=== PATIENT | male | born 1935 | race Caucasian/White ===

== ENCOUNTER 2017-07-14 05:57 | Day surgery (SDC) | payer OTHER ==
[~2017-07-14] VITALS: Ht 175.3 cm; Wt 78.0 kg
[~2017-07-14 05:57] MED LIST: 1-ME1LIQ PO; ENAL10TA7 PO; FEXO180 PO; LORTA5 PO
[2017-07-14 06:48] VITALS: BP 128/72; PULSE 78; RESP 18; TEMP 97.5; O2SAT 98
[2017-07-14] MEDS ORDERED: APIX5TAB PO (06:52)
[2017-07-14] MEDS ORDERED: ENAL20TA PO (06:52)
[2017-07-14] MEDS ORDERED: MULT1TAB46 PO (06:52)
[2017-07-14] MEDS ORDERED: VITA100036 PO (06:52)
[2017-07-14] MEDS ORDERED: AMLO10TA2 PO (06:52)
[2017-07-14] MEDS ORDERED: CALC500T8 PO (06:52)
[2017-07-14 07:12] LABS: AUTOMATED NEUTROPHIL # 2.4 TH/MM3 (1.8-7.7); BASOPHIL % 0.5 % (0.0-2.0); EOSINOPHIL # 0.1 TH/MM3 (0-0.4); EOSINOPHIL % 2.8 % (0.0-4.0); HEMATOCRIT 32.6 % (39.0-51.0); HEMO FLAGS DIFF FINAL; LYMPH % 26.2 % (9.0-44.0); MEAN CELL VOLUME 111.2 FL (80.0-100.0); MEAN CORPUSCULAR HEMOGLOBIN 37.8 PG (27.0-34.0); NEUT % 62.5 % (16.0-70.0); PLATELET COUNT 187 TH/MM3 (150-450); RED BLOOD COUNT 2.93 MIL/MM3 (4.50-5.90); RED CELL DISTRIBUTION WIDTH 13.6 % (11.6-17.2); WHITE BLOOD COUNT 3.8 TH/MM3 (4.0-11.0)
[2017-07-14] MEDS ORDERED: ceFAZolin 2 GM PREMIX 50 ML - implanted port/tunneled catheter insertion IV SCH (07:30)
[2017-07-14] MEDS ORDERED: SODIUM CHLORIDE 0.9% 1000 ML IV SCH (07:30)
[2017-07-14] MEDS: VANCOMYCIN 1000 MG/NS 250 ML - implanted port/tunneled catheter IV SCH ×4 (07:35→08:46)
[2017-07-14] MEDS ORDERED: MIDAZOLAM HCL 2 MG/2 ML VIAL ONE (08:06)
[2017-07-14] MEDS ORDERED: SODIUM CHLORIDE 0.9% FLUSH 10 ML FLUSH IVF PRN (08:45)
--- NOTE | 2017-07-14 08:46 | PD.RAD ---
Post Procedure Progress Note Pre Procedure Diagnosis: (1) Lung mass (2) Renal cancer Post Procedure Diagnosis: (1) Renal cancer (2) Lung mass Procedure Date: Jul 14, 2017 Supervising Radiologist: Oscar Mckeon Estimated blood loss: 2CC Anesthesia: Local, Conscious Sedation Plan of Activity Patient to Unit: ROPU Patient Condition: Fair Additional Comments: Port placed via the right subclavian vein. Catheter in good position Ok for use. Full dictated report to follow See PACS Report for procedural detail/treatment Oscar Mckeon MD Jul 14, 2017 08:46
[2017-07-14 08:55] VITALS: BP 115/62; PULSE 75; RESP 18; TEMP 97.5; O2SAT 97
[2017-07-14 09:10] VITALS: BP 121/75; PULSE 74; RESP 18; O2SAT 97
[2017-07-14 09:40] VITALS: BP 120/68; PULSE 67; RESP 18; O2SAT 98
--- NOTE | 2017-07-14 09:49 | RADRPT ---
EXAM DATE/TIME: 07/14/2017 09:17 [facility] COMPARISON: No previous studies available for comparison. INDICATIONS : Post infusaport placement. MEDICAL HISTORY : Hypertension. Arthritis. Renal cancer. SURGICAL HISTORY : Nephrectomy, left. Right partial lobectomy ENCOUNTER: Initial ACUITY: 1 day PAIN SCORE: 0/10 LOCATION: Right chest FINDINGS: A single frontal expiratory view of the chest was performed. Right-sided Nmqclo-w-Xwcc placement with tip in the cavoatrial junction. Elevation right hemidiaphragm. Pleural-based density laterally on th e left likely rib lesion. Second rib lesion along the left second and third ribs overlying the scapul a. Expansile rib lesion on the right. Heart normal in size. The cardio-mediastinal contours and bronchopulmonary markings are unremarkable for an expiratory exam . Osseous structures are intact. CONCLUSION: 1. Right-sided Kyovyj-m-Ljiz catheter in good position. 2. Bilateral suspected rib lesions. Carlton Velez MD on July 14, 2017 at 9:46 Board Certified Radiologist. This report was verified electronically.
[2017-07-14 10:10] VITALS: BP 143/79; PULSE 81; RESP 18; O2SAT 97
--- NOTE | 2017-07-14 12:30 | RADRPT ---
EXAM DATE/TIME: 07/14/2017 08:04 [facility] COMPARISON: No previous studies available for comparison. INDICATIONS : Patient with a history of metastatic renal cell carcinoma. MEDICAL HISTORY : Renal cancer Lung mass HTN Heart disease SURGICAL HISTORY : Left nephrectomy Lobectomy ENCOUNTER: Initial ACUITY: >1 year PAIN SCORE: 0/10 FLUORO TIME: 0.7 minutes IMAGE SERIES: 2 SEDATION TIME: 20 minutes ACCESS: Right subclavian vein SEDATION: 1.) 2 mg midazolam (Versed) IV 2.) 100 mcg fentanyl (Sublimaze) IV Prophylactic antibiotics were administered with appropriate pre-procedure timing. Vancomycin within 2 hours of procedure, Ancef (or alternative) within 1 hour of procedure. DEVICE: 1. 8 [place] single lumen Bard Power Port PROCEDURE : 1. Continuous pulse oximetry and EKG monitoring. 2. Intravenous conscious sedation. 3. Ultrasound guidance for venous access. 4. Fluoroscopic guided implantable central venous port placement. The patient was placed supine. The neck was prepped in sterile fashion. Full sterile technique was u sed, including cap, mask, sterile gloves and gown, and a large sterile sheet. Hand hygiene and 2% ch lorhexidine Betadine was utilized per protocol for cutaneous antisepsis with appropriate dry time for site. Sterile gel and sterile probe cover were utilized for ultrasound guidance. The skin and sub cutaneous tissues were infiltrated with local anesthetic solution. The patient was examined prior to the procedure. Due to the lack of subcutaneous tissue the decision was made to access the right subclavian vein. Under direct ultrasound guidance, central venous access was accomplished via the right subclavian vein. The ultrasound images depicting access guidance were stored and saved to PACS for permanent record. A subcutaneous pocket was created using blunt dissec tion. The port was introduced to the pocket. The catheter tubing was fed through a subcutaneous aleksandra nishant to the venotomy site. The catheter tubing was cut to a suitable length and then was introduced t hrough a valved Peel-Away sheath and positioned with catheter tubing tip at the cavo-atrial junction level. The pocket incision was closed with subcuticular Vicryl suture. Steri-Strips were applied. The port was flushed and locked with heparin solution per protocol. Sterile dressing was applied to the site. The patient tolerated the procedure well. Conscious sedation was performed with the prescribed dosages and duration as above in the presence of an independent trained radiology nurse to assist in the monitoring of the patient. EKG and oximetry remained stable throughout the procedure. The patient tolerated the procedure well and there were no complications. The patient was sent to post anesthesia recovery in stable condition. CONCLUSION: Uncomplicated ultrasound and fluoroscopic guided implanted central venous port catheter placement as described in detail above. An 8 [place] Power port was placed. Oscar Mckeon MD on July 14, 2017 at 12:28 Board Certified Radiologist. This report was verified electronically.
== END 2017-07-14 11:33 | disposition home or self-care (01) ==
LOC: HROP 05:57 → HRIP 06:32 → HROP 11:33
PROVIDERS: ATTEND Internal Medicine Hematology & Oncology
DX: C64.2 Malignant neoplasm of left kidney, except renal pelvis (principal); C78.01 Secondary malignant neoplasm of right lung; C79.51 Secondary malignant neoplasm of bone; I10 Essential (primary) hypertension
CPT/HCPCS: 36561; 71010; 76937; 77001; 85025; 99152; 99153; C1788; J0690; J1642; J2250; J3010; J3370; J7030; J7050

== ENCOUNTER → 2017-11-30 | Outpatient (CLI) | payer OTHER ==
[~2017-11-30] MED LIST changes: -1-ME1LIQ PO; +AMLO10TA2 PO; +APIX5TAB PO; +CALC500T8 PO; +CHOL10008 PO; -ENAL10TA7 PO; +ENAL20TA PO; -FEXO180 PO; -LORTA5 PO; +MULT1TAB46 PO
--- NOTE | 2017-12-01 10:20 | RSPPFT ---
DATE OF PROCEDURE: 11/30/17 COMMENTS: VOLUMES DYNAMIC: FVC and FEV1 moderately reduced. STATIC: FRC, RV and TLC mildly to moderately reduced. FLOWS: FEV1% mildly reduced; FEF 25-75 severely reduced. DIFFUSION: Moderately reduced. FLOW VOLUME LOOP: Restrictive configuration with terminal airflow obstruction. IMPRESSION: Moderately severe restrictive ventilatory defect with associated obstruction of mild severity. There is no significant improvement post-bronchodilator. Airways resistance is increased. Diffusion capacity is moderately reduced.
== END ==
LOC: PHRSP 10:21
PROVIDERS: ATTEND Internal Medicine
DX: I27.20 Pulmonary hypertension, unspecified (principal); J98.8 Other specified respiratory disorders
CPT/HCPCS: 36600; 82805; 94060; 94618; 94726; 94729

== ENCOUNTER 2017-12-21 09:35 | Day surgery (SDC) | payer OTHER ==
[2017-12-21 10:25] VITALS: BP 88/49; PULSE 83; RESP 18; TEMP 98; O2SAT 100
[2017-12-21 11:00] VITALS: BP 89/60; PULSE 88; RESP 18; TEMP 98; O2SAT 97
--- NOTE | 2017-12-21 11:06 | RADRPT ---
EXAM DATE/TIME: 12/21/2017 10:54 [facility] COMPARISON: CHEST EXPIRATION ONLY, July 14, 2017, 9:17. INDICATIONS : Post left thoracentesis. MEDICAL HISTORY : Hypertension. Arthritis. Renal cancer. SURGICAL HISTORY : Nephrectomy, left. Right partial lobectomy ENCOUNTER: Initial ACUITY: 1 day PAIN SCORE: 0/10 LOCATION: Left chest FINDINGS: A single frontal expiratory view of the chest was performed. No left-sided pneumothorax. Elevation ri ght hemidiaphragm. Right-sided port. Pleural-based masses are seen in the left. Expansile rib lesion seen on the right. CONCLUSION: 1. No pneumothorax status post thoracentesis. Carlton Velez MD on December 21, 2017 at 11:04 Board Certified Radiologist. This report was verified electronically.
[2017-12-21 11:15] VITALS: BP 94/54; PULSE 88; RESP 18; O2SAT 96
[2017-12-21 11:18] VITALS: BP 89/60; PULSE 88; RESP 18; TEMP 98; O2SAT 97
[2017-12-21] MEDS ORDERED: LIDOCAINE HCL 1% 20 ML VIAL ONE (14:42)
--- NOTE | 2017-12-21 16:31 | RADRPT ---
EXAM DATE/TIME: 12/21/2017 10:27 [facility] COMPARISON: No previous studies available for comparison. INDICATIONS : Left pleural effusion. MEDICAL HISTORY : Hypertension. Metastatic renal cell carcinoma. Atrial fibrillation. Anticoagulant therapy, Eliquis. SURGICAL HISTORY : Right lower lobectomy. Left nephrectomy. Port placement. ENCOUNTER: Initial ACUITY: 1 day PAIN SCORE: 0/10 LOCATION: Left chest FLUID: Total volume of 600 cc of clear, yellow fluid was removed. Fluid was sent to lab for ordered studies. TECHNIQUE: 1. Ultrasound guidance for thoracentesis. 2. Thoracentesis. The risks, benefits, and alternatives to ultrasound guided thoracentesis were explained to the patien t in lay simple terms, including the risk of bleeding and infection. Written and verbal informed con sent was obtained. Appropriate area for thoracentesis was marked under ultrasound guidance with the patient in the uprig ht position. Overlying skin was prepped and draped in the usual sterile fashion and with local anest hetic, a dermatotomy was made with an 11 blade scalpel. A 6 [place]ian thoracentesis catheter was placed in the pleural space and fluid was removed. Catheter was then removed and a sterile dressing applie d. There were no immediate complications. The patient tolerated the procedure well and the left the ultrasound suite in stable condition. Chest radiograph is to be obtained. CONCLUSION: Uncomplicated ultrasound guided thoracentesis. Carlton Velez MD on December 21, 2017 at 16:31 Board Certified Radiologist. This report was verified electronically.
== END 2017-12-21 11:33 | disposition home or self-care (01) ==
LOC: HRAD 09:35 → HRIP 09:40 → HRAD 11:33
PROVIDERS: ATTEND Nurse Practitioner Family
DX: J90 Pleural effusion, not elsewhere classified (principal); C64.2 Malignant neoplasm of left kidney, except renal pelvis; C79.51 Secondary malignant neoplasm of bone; I10 Essential (primary) hypertension; I48.91 Unspecified atrial fibrillation; Z79.01 Long term (current) use of anticoagulants
CPT/HCPCS: 32555; 71045; 88112; C1729